=== PATIENT | male | born 1995 | race Two or more races ===

== ENCOUNTER 2017-12-10 12:34 | Emergency (ER) | payer SELFPAY ==
[2017-12-10 13:15] VITALS: BMI 25.1
--- NOTE | 2017-12-10 13:57 | PDOC ---
History of Present Illness - General Chief Complaint: Pain Stated Complaint: ABD PAIN,DIFFICULTY BREATHING Time Seen by Provider: 12/10/17 13:24 History Source: Patient Exam Limitations: No Limitations - History of Present Illness Initial Comments: 12/10/17 16:06 22 M hx of asthma who presents with testicular pain and RLQ abdominal pain. The patient reports a 3 month history of RLQ abdominal pain radiating to his back and groin. He describes the pain as intermittent, waxing and waning in intensity from 4/10 to 7/10 in severity, which is exacerbated with movement, but is not triggered with movement. He also reports testicular pain over the last 6 days which is exacerbated with movement. Patient notes when he urinated a few days ago, the color was darker than usual. He also reports dull penile ache after urination. Patient reports associated symptoms of decreased appetite and chronic constipation. Patient states he visited [facility] emergency room on 12/01 where he had an abdominal CT oral without IV contrast which came out negative, with possible nephrolithiasis with no signs of obstruction. 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 Of note, patient has not followed up with PCP because he has not activated his insurance yet. The patient denies chest pain, shortness of breath, dizziness, and headache. Denies fever, chills, nausea, vomiting, diarrhea, hematochezia, and abnormal discharges. Allergies: NKA Social History: Reported marijuana use. No reported alcohol or cigarette use. Surgical History: None PCP: None. Past History - Past Medical History Allergies/Adverse Reactions: Allergies Allergy/AdvReac Type Severity Reaction Status Date / Time No Known Allergies Allergy Verified 12/10/17 13:10 Home Medications: Ambulatory Orders Albuterol Sulfate Inhaler - [Ventolin Hfa Inhaler -] 1 - 2 inh PO Q4H 12/10/17 Asthma: Yes COPD: No - Immunization History Immunization Up to Date: Yes - Suicide/Smoking/Psychosocial Hx Smoking Status: No Smoking History: Never smoked Have you smoked in the past 12 months: No Number of Cigarettes Smoked Daily: 0 Hx Alcohol Use: No Drug/Substance Use Hx: Yes Substance Use Type: Marijuana Review of Systems - Review of Systems Able to Perform ROS?: Yes Comments:: 12/10/17 16:06 CONSTITUTIONAL: (+)decreased appetite No reported: Fever, Chills, Diaphoresis, Generalized Weakness, Malaise HEENT: No reported: Rhinorrhea, Nasal Congestion, Throat Pain, Throat Swelling, Difficulty Swallowing, Mouth Swelling, Ear Pain, Eye Pain, Visual Changes CARDIOVASCULAR: No reported: Chest Pain, Syncope, Palpitations, Irregular Heart Rate, Lightheadedness, Peripheral Edema RESPIRATORY: No reported: Cough, Shortness of Breath, SOB with Exertion, Orthopnea, Wheezing , Stridor, Hemoptysis GASTROINTESTINAL: (+)RLQ abdominal pain. (+)Constipation. No reported: Abdominal Distension, Nausea, Vomiting, Diarrhea, Melena, Hematochezia GENITOURINARY: (+)Testicular pain. No reported: Dysuria, Frequency, Urgency, Hesitancy, Flank Pain, Genital Pain MUSCULOSKELETAL: No reported: Myalgia, Arthralgia, Joint Swelling, Back pain, Neck Pain SKIN: No reported: Rash, Itching, Pallor HEMEATOLOGIC/IMMUNOLOGIC: No reported: Easy Bleeding, Easy Bruising, Lymphadenopathy, Frequent infections ENDOCRINE: No reported: Unexplained Weight Gain, Unexplained Weight Loss, Heat Intolerance , Cold Intolerance NEUROLOGIC: No reported: Headache, Focal Weakness, Paresthesias, Vertigo, Lightheadedness, Unsteady Gait, Seizure, Mental Status Changes, Incontinence PSYCHIATRIC: No reported: Anxiety, Depression *Physical Exam - Vital Signs Last Vital Signs Temp Pulse Resp BP Pulse Ox 98.9 F 79 18 168/95 98 12/10/17 13:10 12/10/17 13:10 12/10/17 13:10 12/10/17 13:10 12/10/17 13:10 - Physical Exam Comments: 12/10/17 14:24 GENERAL: The patient is awake, alert, and fully oriented, Nontoxic - in no acute distress. HEAD: Normocephalic, atraumatic. EYES: extraocular movements intact, sclera anicteric, conjunctiva clear. ENT: Normal voice, Moist mucous membranes. NECK: Normal range of motion, supple LUNGS: Breath sounds equal, clear to auscultation bilaterally. No wheezes, no rhonchi, no rales. HEART: Regular rate and rhythm, normal S1 and S2 without murmur, rub or gallop. ABDOMEN: Soft, nontender, normoactive bowel sounds. No guarding, no rebound. No CVA tenderness : Normal testicular lie, no testicular or epidimal tenderness, mild tenderness to R hip adductors EXTREMITIES: Normal range of motion, No clubbing or cyanosis. No cords, erythema, or tenderness. NEUROLOGICAL: No facial assymetry, Normal speech, PSYCH: Normal mood, normal affect. SKIN: Warm, Dry, normal turgor, Medical Decision Making - Medical Decision Making 12/10/17 13:52 22y asthma 3 months of abd pain, radiating to back and down to groin intermittent various in intensity, sometimes goes days without the pain ranges dull /aching to sharp recentluy endorses some testicular pain, last several days, ?hematuria see at the medical center on 12/01, had CT egative 12/10/17 14:19 22y M hx of asthma presents with 3 months of intermittent RLQ back pain. The patient notes the pain varies in intesnsity, and sometimes goes for days without the pain. Pain does seem to worsen with physical activity. notes pain is in the RLQ an dsometimes radiates down to the testicle - denies feverchills, n/v. Was evluated at [facility] for the similar complaint and had a neg CT and lab work on 12/01. on exam pt has reproducible tenderness on R hip adductors pain also worse with hip flexion/internal rotation of R hip. testilcular exam wnl no ab tenderness suspect msk cause will obtain UA to r/o UTI US to r/o torsion tylenol for pain 12/10/17 16:06 pts US negative UA negative will dc pt with supportive mangaement I discussed the physical exam findings, ancillary test results and final diagnoses with the patient. I answered all of the patient's questions. The patient was satisfied with the care received and felt comfortable with the discharge plan and treatment plan. The patient will call their primary care physician within 24 hours to arrange follow-up and will return to the Emergency Department with any new, persistent or worsening symptoms. 12/10/17 16:13 repeat bp wwas 133/88, HR 80 *DC/Admit/Observation/Transfer Diagnosis at time of Disposition: Muscular abdominal pain in right lower quadrant Hydrocele Qualifiers: Hydrocele type: unspecified Qualified Code(s): N43.3 - Hydrocele, unspecified - Discharge Dispostion Disposition: HOME Condition at time of disposition: Improved Decision to Admit order: No - Referrals Ref[place]: [facility] [place] [facility] [place]Provider Group] - Patient Instructions Printed Discharge Instructions: DI for Abdominal Pain-Adult Additional Instructions: Return to the emergency department immediately with ANY new, persistent or worsening symptoms including worsening abdominal pain, fevers, inability to tolerate oral intake, chest pain, shortness of breath or any other concerns. I suspect that you're pain is muscular in nature take Motrin or Tylenol for your pain. Avoid any heavy lifting, going to the gym or sporting activities. Stay well hydrated. You MUST call and follow up with your doctor in 4-5 days . Your emergency department visit is not complete without a followup with your doctor for reevaluation. Please make sure your doctor reviews the results of your emergency evaluation. Print Language: THAI - Post Discharge Activity
[2017-12-10] MEDS ORDERED: ACETAMINOPHEN 325 MG TABLET (FP) PO ONE (14:01)
[2017-12-10] MEDS ORDERED: ACETAMINOPHEN 325 MG TABLET (FP) ONE (14:05)
[2017-12-10 14:41] LABS: URINE APPEARANCE CLEAR; URINE BILIRUBIN NEGATIVE (<2.0 mg/dL); URINE COLOR YELLOW; URINE GLUCOSE (UA) NEGATIVE (NEGATIVE); URINE KETONE NEGATIVE (NEGATIVE); URINE LEUK ESTERASE NEGATIVE (NEGATIVE); URINE NITRITE NEGATIVE (NEGATIVE); URINE PROTEIN NEGATIVE (NEGATIVE)
[2017-12-10 16:16] VITALS: BP 133/88; PULSE 80; TEMP 98
== END 2017-12-10 16:17 | disposition home or self-care (01) ==
LOC: JER 12:34
DX: N43.3 Hydrocele, unspecified (principal); R10.31 Right lower quadrant pain
CPT/HCPCS: 36415; 76870-TC; 81003; 87491; 87591; 99283-25